=== PATIENT | female | born 2000 | race Two or more races ===

== ENCOUNTER 2023-08-08 23:41 | Emergency (ER) | payer OTHER ==
[~2023-08-08] VITALS: Ht 162.6 cm; Wt 54.4 kg
== END 2023-08-09 03:27 | disposition home or self-care (01) ==
LOC: ER 23:41
DX: S90.222A Contusion of left lesser toe(s) with damage to nail, initial encounter (principal); X58.XXXA Exposure to other specified factors, initial encounter; Y93.9 Activity, unspecified; Y92.9 Unspecified place or not applicable; Y99.9 Unspecified external cause status